=== PATIENT | male | born 1970 | race Caucasian/White ===

== ENCOUNTER 2021-07-02 12:07 | Emergency (ER) | payer BC, SELFPAY ==
[2021-07-02 12:44] VITALS: BP 193/120; PULSE 94; RESP 16; TEMP 36.8; O2SAT 98; BMI 39.9
--- NOTE | 2021-07-02 12:50 | XR_ITS ---
WS: [id number] XR hand LT min 3V* [id number] REASON FOR EXAM: trauma FINDINGS: Comminuted fracture of the tuft of the distal phalanx of the fifth finger. The remainder of the bony and joint structures of the left hand are intact. XR/XR hand LT min 3V* [id number] IMPRESSION: Fracture of the left fifth finger as above.
[2021-07-02 13:10] VITALS: BP 179/119; PULSE 89; RESP 16; O2SAT 95
--- NOTE | 2021-07-02 13:18 | W.ED.EXTPRO ---
HPI - Extremity Problem General: Chief complaint: Extremity Injury, Upper Stated complaint: Finger laceration Time Seen by Provider: 07/02/21 12:49 History of Present Illness: HPI Narrative: Patient is mass pinky finger with a piece of metal today. Patient also on lisinopril for blood pressure but not sure what doses. Patient does not check blood pressure regularly. MD Complaint: extremity pain Onset (ago): minute(s) Pain Consistency: constant Location: left and upper extremity Severity scale (1-10): 2 Quality: aching Radiation: none Relieving factors: immobilization Exacerbating factors: palpation Associated symptoms: Reports no associated symptoms; Deny chest pain, fever(s) or rash Review of Systems Const: Denies: fever(s), chills or body aches Eyes: Denies: change in vision or blurry vision ENMT: Denies: throat pain or nasal congestion Card: Denies: chest pain or dyspnea on exertion Resp: Denies: dyspnea, productive cough or non-productive cough GI: Denies: abdominal pain, nausea or vomiting : Denies: difficulty urinating Musc: Reports: extremity pain (Left pinky finger got smashed today) Skin/Breast: Denies: rash Neuro: Denies: headache(s) Psych: Denies: anxiety or depression Michael/Lymph: Denies: easy bruising Physical Exam Const: COMMON NORMALS: no acute distress GENERAL APPEARANCE: cooperative Cardio: COMMON NORMALS: regular rate RATE: regular rate Psych: COMMON NORMALS: mental status grossly normal Skin: OTHER: Small laceration in the pinky finger with bruising swelling and part of the fat from the finger exposed to the laceration. X-ray did reveal fractured tuft of the finger. Patient has good range of motion of finger neurovascular intact tendons intact Course Vital Signs: Vital signs: Vital Signs Temperature 98.3 F 07/02/21 12:44 Pulse Rate 89 07/02/21 13:10 Respiratory Rate 16 07/02/21 13:10 Blood Pressure 179/119 07/02/21 13:10 Pulse Oximetry 95 07/02/21 13:10 MDM - Extremity (Nontraumatic) MDM Narrative: Medical decision making narrative: I laceration open because it is not an open fracture trim some of the fat that was extruding through the wound. Dressing was applied splint was placed patient encouraged to change splint daily check blood pressures follow-up primary care and with Ortho appointment. Discharge Plan Discharge Patient Disposition: Home Clinical Impression: Finger fracture, left Qualifiers: Encounter type: initial encounter Finger: little finger Fracture type: open Phalanx: distal Fracture alignment: nondisplaced Qualified Code(s): S62.667B - Nondisplaced fracture of distal phalanx of left little finger, initial encounter for open fracture HTN (hypertension) Qualifiers: Hypertension type: primary hypertension Qualified Code(s): I10 - Essential (primary) hypertension Condition: Stable Prescriptions: New tramadol 50 mg tablet 50 mg PO TID PRN (Reason: pain) Qty: 7 RF: 0 cephalexin 500 mg capsule 500 mg PO Q8H 7 Days Qty: 21 RF: 0 amlodipine 10 mg tablet 10 mg PO DAILY Qty: 7 RF: 0 Discharge Orders: Discharge ED (Routine); Ordered 07/02/21 Ordered By: Aaron Fair Discharge Diet: Usual diet Discharge Activity: Increase activity as tolerated Patient Instructions: Finger Fracture (ED), Chronic Hypertension (ED) Activity Restrictions/Additional Instructions: Follow-up with medical provider as directed. Take medications as prescribed. Return to the ER or your medical provider if condition worsens. Please read and understand discharge instructions. If any questions ask please. Check blood pressure daily and record those readings and report those back to your primary care provider. Wear splint daily. Keep wound covered with Vaseline and/or petroleum jelly. 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
--- NOTE | 2021-07-03 10:45 | DCPLANNER ---
Addendum entered by Flor Thomas 07/04/21 07:26: Zulema from ortho emailed director of casework stating that when clinic contacted patient to schedule a follow up appointment, that patient stated that he lives in [place], and he will follow up when he returns home. No appointment at this time. Original Note: marketing effectiveness manager had message to schedule a follow up appointment for patient with ortho. marketing effectiveness manager called the ortho clinic, spoke with , gave clinic patients information. marketing effectiveness manager was told that patients information would be printed and reviewed. Clinic will call patient with appointment information.
== END 2021-07-02 13:28 | disposition home or self-care (01) ==
PROVIDERS: Emergency Provider Nurse Practitioner Family
DX: S62.667B Nondisplaced fracture of distal phalanx of left little finger, initial encounter for open fracture (principal); I10 Essential (primary) hypertension; W23.0XXA Caught, crushed, jammed, or pinched between moving objects, initial encounter
CPT/HCPCS: 73130; 99283